=== PATIENT | male | born 1960 | race Caucasian/White ===

== ENCOUNTER 2021-06-23 19:04 | Emergency (ER) | payer OTHER ==
[2021-06-24 19:15] LABS: SARS-CoV-2 PCR by NAA Not Detected (NotDetected)
== END 2021-06-23 19:40 ==
LOC: MADERS 19:04
DX: Z20.822 Contact with and (suspected) exposure to COVID-19 (principal); N40.0 Benign prostatic hyperplasia without lower urinary tract symptoms; F17.200 Nicotine dependence, unspecified, uncomplicated
CPT/HCPCS: 99283; U0003; U0005